=== PATIENT | male | born 1950 | race Two or more races ===

== ENCOUNTER 2018-10-09 22:54 | Emergency (ER) | payer MEDICAID ==
[~2018-10-09] VITALS: Ht 167.6 cm; Wt 68.0 kg
[2018-10-10 02:23] VITALS: BP 138/83
[2018-10-10] MEDS ORDERED: InsuLIN REG 1unit/0.01ml Soln (100units/ml) IV ONE (03:45)
[2018-10-10] MEDS ORDERED: SODIUM CHLORIDE 0.9% 1,000 ML IV ONE (03:45)
[2018-10-10 05:54] LABS: Urine Bacteria MOD /hpf (None Seen); Urine Blood TRACE /uL (Negative); Urine Specific Gravity 1.005 (1.001-1.035); Urine WBC 30 /hpf (0 - 3)
== END 2018-10-10 07:16 | disposition home or self-care (01) ==
LOC: EDBD 23:07 → ER 23:07
DX: N40.0 Benign prostatic hyperplasia without lower urinary tract symptoms (principal); N39.0 Urinary tract infection, site not specified; E11.649 Type 2 diabetes mellitus with hypoglycemia without coma; E11.65 Type 2 diabetes mellitus with hyperglycemia
CPT/HCPCS: 51702; 81001; 82962; 96361; 96374; 99284; J1815; J7030

== ENCOUNTER 2018-11-01 11:34 | Emergency (ER) | payer SELFPAY ==
[~2018-11-01] VITALS: Ht 170.2 cm; Wt 68.0 kg
[2018-11-01 11:57] VITALS: BP 130/67
== END 2018-11-01 13:31 | disposition home or self-care (01) ==
LOC: ER 11:36
DX: N39.0 Urinary tract infection, site not specified (principal); E11.9 Type 2 diabetes mellitus without complications; I10 Essential (primary) hypertension; Z46.6 Encounter for fitting and adjustment of urinary device
CPT/HCPCS: 51702; 81002